=== PATIENT | female | born 1960 ===

== ENCOUNTER 2018-05-19 19:12 | Emergency (ER) | payer OTHER ==
[2018-05-19 19:25] VITALS: BMI 40.3
[2018-05-19 20:08] LABS: BASO # 0.02 K/mm3 (0.0-2.0); BASO % 0.1 % (0.0-3.0); EOS # 0.3 (0.0-0.7); EOS % 1.6 % (1.5-5.0); GRAN # 12.32 (1.4-6.5); GRAN % 67.3 % (50.0-68.0); HEMOGLOBIN 13.6 g/dL (12.0-16.0); LYMPH # 4.7 (1.2-3.4); LYMPH % 25.7 % (22.0-35.0); MEAN CELL VOLUME 89.2 fl (80.0-105.0); MEAN CORPUSCULAR HGB CONC 33.6 g/dl (31.0-37.0); MEAN PLATELET VOLUME 11.7 fl (7.0-11.0); MONO % 5.3 % (1.0-6.0); RBC 4.54 10^6/uL (3.5-6.1); RED CELL DISTRIBUTION WIDTH 15.7 % (11.5-14.5); WHITE BLOOD COUNT 18.3 10^3/uL (4.5-11.0)
[2018-05-19 20:17] LABS: ALB/GLOB RATIO 1.4 (1.1-1.8); ALBUMIN 4.2 g/dL (3.0-4.8); ALT/SGPT 55 U/L (7-56); AST/SGOT 33 U/L (14-36); BLOOD UREA NITROGEN 15 mg/dL (7-21); CALCIUM 8.6 mg/dL (8.4-10.5); GFR NON-AFRICAN AMERICAN > 60
[2018-05-19 20:37] LABS: INR 0.92; PARTIAL THROMBOPLASTIN TIME 24.1 Seconds (25.1-36.5); PROTHROMBIN TIME 10.5 SECONDS (9.4-12.5)
[2018-05-19] MEDS ORDERED: Potassium Chloride 20 mEq ER Tab PO STA (20:47)
[2018-05-19 21:35] VITALS: O2SAT 99
--- NOTE | 2018-05-19 21:38 | ED PDOC ---
Arrival/HPI - General Chief Complaint: Seizure Time Seen by Provider: 05/19/18 19:16 Historian: Patient, Family - History of Present Illness Narrative History of Present Illness (Text): 05/19/18 21:34 57 year old female, whose past medical history includes GBM x3 surgery 2 weeks prior, presents to the emergency department for evaluation status post witnessed seizure. Patient informs having history of seizures and is on keppra twice daily. Patient informs taking keppra once today in the morning. Patient also informs taking oral steroids, last taken yesterday. Patient denies any fever, pain, nausea, vomiting, diarrhea, or any other complaints. Time/Duration: Prior to Arrival Symptom Onset: Sudden Quality: Stabbing Activities at Onset: Light Context: Home Past Medical History - Provider Review Nursing Documentation Reviewed: Yes - Infectious Disease Hx of Infectious Diseases: None - Neurological Hx Seizures: Yes Other/Comment: Brain CA/tumor - Endocrine/Metabolic Hx Hypothyroidism: Yes - Psychiatric Hx Substance Use: No - Surgical History Hx Appendectomy: Yes Hx Cholecystectomy: Yes Hx Hysterectomy: Yes Other/Comment: brain tumor removal - Anesthesia Hx Anesthesia: Yes Hx Anesthesia Reactions: No Hx Malignant Hyperthermia: No Family/Social History - Physician Review Nursing Documentation Reviewed: Yes Family/Social History: No Known Family HX Smoking Status: Never Smoked Hx Alcohol Use: No Hx Substance Use: No Allergies/Home Meds Allergies/Adverse Reactions: Allergies No Known Allergies Allergy (Verified 05/19/18 19:17) Home Medications: Home Meds Medication Instructions Recorded Confirmed Atorvastatin [Lipitor] 1 tab PO HS 05/19/18 05/19/18 Ergocalciferol [Drisdol 50,000 1 cap PO Q7D 05/19/18 05/19/18 Intl Units Cap] Levetiracetam [Keppra] 1 tab PO BID 05/19/18 05/19/18 Levothyroxine [Synthroid] 1 tab PO DAILY 05/19/18 05/19/18 Losartan [Cozaar] 1 tab PO DAILY 05/19/18 05/19/18 Pantoprazole [Protonix EC Tab] 1 tab PO DAILY 05/19/18 05/19/18 Review of Systems - Physician Review All systems were reviewed & negative as marked: Yes - Review of Systems Constitutional: absent: Fevers Gastrointestinal: absent: Diarrhea, Nausea, Vomiting Neurological: Seizure Physical Exam Vital Signs Reviewed: Yes Vital Signs Temp Pulse Resp BP Pulse Ox 05/19/18 19:21 98 F 93 H 18 139/95 H 100 Temperature: Afebrile Blood Pressure: Hypertensive Pulse: Regular Respiratory Rate: Normal Appearance: Positive for: Well-Appearing, Non-Toxic, Comfortable Pain Distress: None Mental Status: Positive for: Alert and Oriented X 3 Finger Stick Blood Glucose: 102 - Systems Exam Head: Present: Atraumatic, Normocephalic Pupils: Present: PERRL Extroacular Muscles: Present: EOMI Conjunctiva: Present: Normal Mouth: Present: Moist Mucous Membranes Neck: Present: Normal Range of Motion Respiratory/Chest: Present: Clear to Auscultation, Good Air Exchange. No: Respiratory Distress, Accessory Muscle Use Cardiovascular: Present: Regular Rate and Rhythm, Normal S1, S2. No: Murmurs Abdomen: Present: Other (obese). No: Tenderness, Distention, Peritoneal Signs Back: Present: Normal Inspection Upper Extremity: Present: Normal Inspection. No: Cyanosis, Edema Lower Extremity: Present: Normal Inspection. No: Edema Neurological: Present: GCS=15, CN II-XII Intact, Speech Normal Skin: Present: Warm, Dry, Normal Color. No: Rashes Psychiatric: Present: Alert, Oriented x 3, Normal Insight, Normal Concentration Medical Decision Making ED Course and Treatment: 05/19/18 21:41 Impression: 57 year old female presents with seizure. ED course: -- CT Head -- Chest X-ray -- Keppra -- Potassium -- Urine Cultures -- Urinalysis Progress Notes: 05/19/18 21:[address] Fairchild who's covering for Dr Castanon, both of whom are oncologists affiliated with [facility]. Dr Fairchild reviewed case, and agrees patient is cleared for discharge if labs and CT show no acute findings. 05/19/18 21:[address] Fairchild who is aware of lab and CT results. Patient is cleared for discharge, and will follow up with him tomorrow morning. - Lab Interpretations Lab Results: PT 10.5 SECONDS (9.4-12.5) 05/19/18 20:23 INR 0.92 05/19/18 20:23 APTT 24.1 Seconds (25.1-36.5) L 05/19/18 20:23 Total Bilirubin 0.8 mg/dL (0.2-1.3) 05/19/18 20:00 AST 33 U/L (14-36) 05/19/18 20:00 ALT 55 U/L (7-56) 05/19/18 20:00 Alkaline Phosphatase 102 U/L (38-126) 05/19/18 20:00 Total Protein 7.2 g/dL (5.8-8.3) 05/19/18 20:00 Albumin 4.2 g/dL (3.0-4.8) 05/19/18 20:00 Globulin 3.0 gm/dL 05/19/18 20:00 Albumin/Globulin Ratio 1.4 (1.1-1.8) 05/19/18 20:00 - RAD Interpretation Radiology Orders: 05/19/18 19:57 CHEST PORTABLE [RAD] Stat 05/19/18 20:17 HEAD W/O CONTRAST [CT] Stat - Medication Orders Current Medication Orders: Discontinued Medications Levetiracetam (Keppra) 750 mg PO STAT STA Stop: 05/19/18 20:16 Last Admin: 05/19/18 20:24 Dose: 750 mg Potassium Chloride (K-Dur 20 Meq Er Tab) 40 meq PO STAT STA Stop: 05/19/18 20:48 Last Admin: 05/19/18 21:27 Dose: 40 meq - Scribe Statement The provider has reviewed the documentation as recorded by the Scribe Jacob De Anda All medical record entries made by the Scribe were at my direction and personally dictated by me. I have reviewed the chart and agree that the record accurately reflects my personal performance of the history, physical exam, medical decision making, and the department course for this patient. I have also personally directed, reviewed, and agree with the discharge instructions and d isposition. Disposition/Present on Arrival - Present on Arrival Any Indicators Present on Arrival: No History of DVT/PE: No History of Uncontrolled Diabetes: No Urinary Catheter: No History of Decub. Ulcer: No History Surgical Site Infection Following: None - Disposition Have Diagnosis and Disposition been Completed?: Yes Diagnosis: Seizure, GBM (glioblastoma multiforme) Disposition: HOME/ ROUTINE Disposition Time: 21:30 Patient Problems: Current Active Problems Problem Status Onset Seizure Acute GBM (glioblastoma multiforme) Acute Condition: STABLE Discharge Instructions (ExitCare): Seizures, Adult (DC) Additional Instructions: RADHA HERMAN, thank you for letting us take care of you today. The emergency medical care you received today was directed at your acute symptoms. If you were prescribed any medication, please fill it and take as directed. It may take several days for your symptoms to resolve. Return to the Emergency Department if your symptoms worsen, do not improve, or if you have any other problems. Please contact your doctor or call one of the physicians/clinics you have been referred to that are listed on the Patient Visit Information form that is included in your discharge packet. Bring any paperwork you were given at discharge with you along with any medications you are taking to your follow up visit. Our treatment cannot replace ongoing medical care by a primary care provider outside of the emergency department. Thank you for allowing the [facility] team to be part of your care today. I spoke to the oncologist on-call tonight. Please follow up with them tomorrow morning at 9am. They are expecting you. Return to the emergency room if you have any concerns. Referrals: Julieta Will MD [Primary Care Provider] - Follow up with primary Forms: [employer] ([place])
[2018-05-19 22:53] VITALS: BP 130/68; PULSE 90; RESP 18; TEMP 98.2
[2018-05-20 05:36] LABS: PH,URINE 6.5 (4.7-8.0); URINE BILIRUBIN NEGATIVE (NEGATIVE); URINE BLOOD NEGATIVE (NEGATIVE); URINE GLUCOSE (UA) NEGATIVE (NEGATIVE); URINE LEUKOCYTE ESTERASE TRACE Leu/uL (NEGATIVE); URINE PROTEIN NEGATIVE mg/dL (<30 mg/dL); URINE UROBILINOGEN 0.2 E.U./dL (<1 E.U./dL)
[2018-05-20 05:37] LABS: URINE APPEARANCE CLEAR (CLEAR); URINE COLOR YELLOW (YELLOW)
[2018-05-20 05:43] LABS: URINE BACTERIA OCC /hpf; URINE RBC 0 - 2 /hpf (0-2)
--- NOTE | 2018-05-20 07:22 | RAD ---
Date of service: 05/19/2018 HISTORY: r/o infiltrate COMPARISON: No prior. FINDINGS: LUNGS: No active pulmonary disease. PLEURA: No significant pleural effusion identified, no pneumothorax apparent. CARDIOVASCULAR: No aortic atherosclerotic calcification present. Mild cardiomegaly no pulmonary vascular congestion. OSSEOUS STRUCTURES: No significant abnormalities. VISUALIZED UPPER ABDOMEN: Normal. OTHER FINDINGS: None. IMPRESSION: No active disease.
--- NOTE | 2018-05-20 07:44 | CT ---
Date of service: 05/19/2018 PROCEDURE: CT HEAD WITHOUT CONTRAST. HISTORY: r/o bleed - h/o multiple surgeries for GBM COMPARISON: None available. TECHNIQUE: Axial computed tomography images were obtained through the head/brain without intravenous contrast. Radiation dose: Total exam DLP = 864.26 mGy-cm. This CT exam was performed using one or more of the following dose reduction techniques: Automated exposure control, adjustment of the mA and/or kV according to patient size, and/or use of iterative reconstruction technique. FINDINGS: HEMORRHAGE: No intracranial hemorrhage. BRAIN: There is a fluid-filled defect and encephalomalacia in the left parietal lobe measuring 3 x 3.4 cm. There is a small amount of air within the collection. There is no hemorrhage. No prior studies for comparison VENTRICLES: Unremarkable. No hydrocephalus. CALVARIUM: Left parietal craniotomy PARANASAL SINUSES: Unremarkable as visualized. No significant inflammatory changes. MASTOID AIR CELLS: Unremarkable as visualized. No inflammatory changes. OTHER FINDINGS: There is a sebaceous cyst in the midline of the occipital region. The report concurs with the preliminary [facility] report IMPRESSION: There is a fluid-filled defect and encephalomalacia in the left parietal lobe measuring 3 x 3.4 cm. There is a small amount of air within the collection. There is no hemorrhage. No prior studies for comparison
--- NOTE | 2018-05-20 20:09 | CARD ---
APPROVED REPORT Date of service: 05/19/2018 EKG Measurement Heart [id number] ID [id number] <Conclusion> Normal sinus rhythm Incomplete RBBB Voltage criteria for left ventricular hypertrophy Nonspecific ST abnormality Prolonged QT Abnormal ECG
== END 2018-05-19 22:40 | disposition home or self-care (01) ==
LOC: ED 19:12 → MERGE 19:12 → ED 22:40
DX: R56.9 Unspecified convulsions (principal); C71.9 Malignant neoplasm of brain, unspecified; Z79.899 Other long term (current) drug therapy